=== PATIENT | female | born 1980 | race African-American/Black ===

== ENCOUNTER 2024-06-05 14:05 | Emergency (ER) | payer OTHER, SELFPAY ==
[2024-06-05] MEDS ORDERED: Methocarbamol 500 MG TAB ONE (15:31)
[2024-06-05] MEDS ORDERED: Ketorolac Tromethamine 30 MG (1 mL) VIAL ONE (15:31)
== END 2024-06-05 16:05 | disposition home or self-care (01) ==
LOC: CSHERS 14:05
DX: M54.6 Pain in thoracic spine (principal); I10 Essential (primary) hypertension
CPT/HCPCS: 96372; 99283; J1885